=== PATIENT | female | born 1980 | race Asian ===

== ENCOUNTER 2016-12-20 00:28 | Inpatient (IN) | payer SELFPAY ==
[~2016-12-20] VITALS: Ht 160 cm; Wt 60.8 kg
[2016-12-20] MEDS ORDERED: LACTATED RINGERS 1,000 ML IV SCH (02:44)
[2016-12-20 04:53] LABS: HEMATOCRIT 32.8 % (36-48); HEMOGLOBIN 10.6 g/dL (12.0-16.0); MEAN CORPUSCULAR HEMOGLOBIN 30 pg (27-31); MEAN CORPUSCULAR HGB CONC 32 g/dL (33-37); MEAN CORPUSCULAR VOLUME 92 fL (80-94); PLATELET COUNT (AUTO) 213 K/uL (140-450); RED BLOOD CELL COUNT(AUTO) 3.58 MIL/uL (4.20-5.40); RED CELL DISTRIBUTION WIDTH 13.6 % (11.6-13.7); WHITE BLOOD COUNT (AUTO) 6.4 K/uL (4.8-10.8)
[2016-12-20 04:56] LABS: APPEARANCE,URINE HAZY (CLEAR); BILIRUBIN,URINE NEGATIVE (NEGATIVE); BLOOD, URINE NEGATIVE (NEGATIVE); COLOR,URINE YELLOW (YELLOW); LEUKOCYTE ESTERASE ,URINE 3+ (NEGATIVE); NITRITE, URINE NEGATIVE (NEGATIVE); UGLUCOSE NEGATIVE (NEGATIVE)
[2016-12-20 05:10] LABS: ALBUMIN 2.3 g/dL (3.4-5.0); CARBON DIOXIDE 25.8 mmol/L (21-32); CREATININE 0.6 mg/dL (0.6-1.3); POTASSIUM 3.8 mmol/L (3.5-5.1); TOTAL BILIRUBIN 0.2 mg/dL (0.0-1.0)
[2016-12-20 05:11] LABS: RBC,URINE 0-5 (RARE) /HPF (0-5); WBC,URINE 60-80 /HPF (0-5)
[2016-12-20 05:12] LABS: COARSE GRANULAR CASTS,URINE 0-10 /LPF (None Seen)
[2016-12-20 05:13] LABS: CALCIUM OXALATE CRYSTALS,UR 0-10 /HPF (None Seen)
[2016-12-20 05:35] LABS: EOSINOPHILS % (MANUAL) 1 % (0-4); LYMPHOCYTES % (MANUAL) 17 % (20-46); MONOCYTES % (MANUAL) 6 % (5-12)
[2016-12-20] MEDS ORDERED: PREN-380 PO (06:40)
[2016-12-20] MEDS ORDERED: CITRIC ACID/SODIUM CITRATE 30 ML UDC PO SCH (07:00)
[2016-12-20] MEDS ORDERED: BUPIVACAINE-MPF 0.75% 10 ML VIAL INJ ONE (07:25)
[2016-12-20] MEDS ORDERED: ONDANSETRON 4 MG/2 ML VIAL ONE (07:25)
[2016-12-20] MEDS ORDERED: MORPHINE SULFATE 4 MG/ML SYR ONE (07:25)
[2016-12-20] MEDS ORDERED: ceFAZolin 1,000 MG VIAL ONE (07:25)
[2016-12-20] MEDS ORDERED: OXYTOCIN 20 UNITS in LACTATED RINGERS 1,000 ML IV SCH ×2 (07:36→10:25)
[2016-12-20] MEDS ORDERED: OXYTOCIN 10 UNITS/ML VIAL ONE (07:38)
[2016-12-20] MEDS ORDERED: TRIAMCINOLONE 40 MG/ML 5ML VIAL ONE (07:39)
[2016-12-20] MEDS ORDERED: METHYLERGONOVINE 0.2 MG/ML AMP IM PRN (07:40)
[2016-12-20] MEDS ORDERED: TEMAZEPAM 15 MG CAP PO PRN (07:40)
[2016-12-20] MEDS ORDERED: SIMETHICONE 80 MG TAB.CHEW PO PRN (07:40)
[2016-12-20] MEDS ORDERED: oxyCODONE/APAP 5/325 MG 1 TAB TAB PO PRN (07:40)
[2016-12-20] MEDS ORDERED: HYDROcodone/APAP 5/325 MG 1 TAB TAB PO PRN (07:40)
[2016-12-20] MEDS ORDERED: TRIMETHOBENZAMIDE 200 MG/2 ML SYR IM PRN (07:40)
[2016-12-20] MEDS ORDERED: IBUPROFEN 800 MG TAB PO PRN (07:40)
[2016-12-20] MEDS ORDERED: MEASLES, MUMPS, AND RUBELLA 1 VIAL SQVAC PRN (07:40)
[2016-12-20] MEDS ORDERED: KETAMINE 500 MG/5 ML VIAL ONE (07:42)
[2016-12-20] MEDS ORDERED: fentaNYL 0.05 MG/ML VIAL ONE (07:42)
[2016-12-20] MEDS ORDERED: MIDAZOLAM 2 MG/2 ML VIAL ONE (07:42)
[2016-12-20] MEDS ORDERED: MORPHINE PRES FREE 10 MG/10 ML AMP IV ONE (07:43)
[2016-12-20] MEDS ORDERED: OXYTOCIN 20 UNITS/LR PREMIX 1,000 ML IV ONE (08:50)
--- NOTE | 2016-12-20 09:17 | NUR ---
PATIENT HAS BEEN SCREENED AND CATEGORIZED LOW NUTRITION RISK. PATIENT WILL BE SEEN WITHIN 7 DAYS OF ADMISSION. 12/26/[address]
[2016-12-20] MEDS ORDERED: ONDANSETRON 4 MG/2 ML VIAL IVP PRN (10:05)
[2016-12-20] MEDS ORDERED: KETOROLAC 30 MG/ML VIAL IVP PRN (10:05)
[2016-12-20] MEDS ORDERED: diphenhydrAMINE 50 MG/ML VIAL IVP PRN (10:05)
[2016-12-20 12:02] LABS: RAPID PLASMA REAGIN NON-REACTIVE (Non Reactiv)
[2016-12-20] MEDS ORDERED: INFLUENZA VIRUS VACCINE QUAD 0.5 ML SYR IMVAC SCH (22:00)
[2016-12-20] MEDS: DOCUSATE SOD/SENNA 50/8.6 MG 1 TAB PO SCH (22:45)
[2016-12-21] MEDS ORDERED: OXYTOCIN 20 UNITS/LR PREMIX 1,000 ML IV ONE (03:35)
[2016-12-21 06:56] LABS: HEMATOCRIT 31.7 % (36-48); HEMOGLOBIN 10.5 g/dL (12.0-16.0); MEAN CORPUSCULAR HEMOGLOBIN 30 pg (27-31); MEAN CORPUSCULAR HGB CONC 33 g/dL (33-37); MEAN CORPUSCULAR VOLUME 91 fL (80-94); PLATELET COUNT (AUTO) 208 K/uL (140-450); RED BLOOD CELL COUNT(AUTO) 3.49 MIL/uL (4.20-5.40); WHITE BLOOD COUNT (AUTO) 12.4 K/uL (4.8-10.8)
[2016-12-21 07:31] LABS: EOSINOPHILS % (MANUAL) 2 % (0-4); LYMPHOCYTES % (MANUAL) 7 % (20-46); MONOCYTES % (MANUAL) 3 % (5-12)
--- NOTE | 2016-12-21 08:50 | NUR ---
PATIENT AWAKE AND ALERT NO SOB NOTED WITH BREAKFAST TRAY AT THIS TIME T[employer] TO ATTEMPT INCENTIVE SPIROMETRY THERAPY AT A LATER TIME
--- NOTE | 2016-12-21 13:53 | NUR ---
TOLERATED INCENTIVE SPIROMETRY THERAPY WELL WITHOUT ADVERSE REACTIONS NOTED ENCOURAGED PATIENT WITH ACKNOWLEDGEMENT TO USE INCENTIVE SPIROMETRY EVERY 1-2 HOURS WHILE AWAKE
--- NOTE | 2016-12-21 20:15 | NUR ---
INCENTIVE SPIROMETER NOT DONE, PATIENT SLEEPING.
[2016-12-21] MEDS: DOCUSATE SOD/SENNA 50/8.6 MG 1 TAB PO SCH (21:08)
== END 2016-12-22 16:50 | disposition home or self-care (01) | DRG 765 ==
LOC: MLD 00:28 → MFCC 08:44
PROVIDERS: ADMIT Obstetrics & Gynecology; ATTEND Obstetrics & Gynecology
PROC: 10D00Z1 Extraction of Products of Conception, Low, Open Approach (ICD-10-PCS; principal; 2016-12-20 07:30)
PROC: 3E0234Z Introduction of Serum, Toxoid and Vaccine into Muscle, Percutaneous Approach (ICD-10-PCS; 2016-12-21)
DX: O34.211 Maternal care for low transverse scar from previous cesarean delivery (principal); K83.1 Obstruction of bile duct; O26.62 Liver and biliary tract disorders in childbirth; Z37.0 Single live birth; O69.81X0 Labor and delivery complicated by cord around neck, without compression, not applicable or unspecified; Z3A.39 39 weeks gestation of pregnancy; Z23 Encounter for immunization
CPT/HCPCS: 36415; 80053; 81001; 85025; 86592; 86886; 86900; 86901; 87086; 90658; 90715; J0690; J2250; J2270; J2405; J2590; J3010; J3301; J3490; J7060; J7120